=== PATIENT | male | born 1990 | race Caucasian/White ===

== ENCOUNTER 2018-01-28 19:11 | Emergency (ER) | payer OTHER ==
[~2018-01-28] VITALS: Ht 182.9 cm; Wt 102.3 kg
[2018-01-28 20:54] VITALS: BP 121/90; PULSE 108; TEMP 98.5
== END 2018-01-28 20:55 | disposition home or self-care (01) ==
LOC: COL.ER 19:11
DX: S62.304A Unspecified fracture of fourth metacarpal bone, right hand, initial encounter for closed fracture (principal); S62.306A Unspecified fracture of fifth metacarpal bone, right hand, initial encounter for closed fracture; F17.210 Nicotine dependence, cigarettes, uncomplicated; W20.8XXA Other cause of strike by thrown, projected or falling object, initial encounter
CPT/HCPCS: Q4021

== ENCOUNTER 2023-01-26 17:20 | Emergency (ER) | payer OTHER, BC ==
[~2023-01-26] VITALS: Ht 182.9 cm; Wt 59.1 kg
[~2023-01-26 17:20] MED LIST: PERCOCET 325 MG1 TA2 PO
[2023-01-26 17:25] VITALS: BP 122/89; TEMP 98.2
[2023-01-26 18:03] VITALS: PULSE 98
== END 2023-01-26 18:03 | disposition home or self-care (01) ==
LOC: COL.ER 17:20
DX: S62.141A Displaced fracture of body of hamate [unciform] bone, right wrist, initial encounter for closed fracture (principal); F17.200 Nicotine dependence, unspecified, uncomplicated; Z28.311 Partially vaccinated for COVID-19; W21.03XA Struck by baseball, initial encounter
CPT/HCPCS: J1885